=== PATIENT | female | born 2000 | race Caucasian/White ===

== ENCOUNTER 2023-07-31 09:23 | Emergency (ER) | payer BC ==
[2023-07-31] MEDS ORDERED: Sodium Chloride 0.9% 10 ML Syringe FLUSH PRN (09:59)
[2023-07-31] MEDS ORDERED: Adenosine 6 MG/2 ML SDV IVPUSH ONE (10:06)
[2023-07-31] MEDS ORDERED: Digoxin 500 MCG/2 ML Amp IVPUSH ONE ×2 (10:07→13:05)
[2023-07-31 10:09] LABS: BASOPHILS PERCENT AUTO 0.1 % (0.0-1.0); HEMATOCRIT 38.3 % (37.0-47.0); IMMATURE GRAN ABSOLUTE AUTO 0.04 K/mm3 (0.00-0.05); IMMATURE GRAN PERCENT AUTO 0.4 % (0.0-0.4); LYMPHOCYTES PERCENT AUTO 18.6 % (24.0-44.0); MEAN PLATELET VOLUME 9.1 fl (9.4-12.3); MONOCYTES ABSOLUTE AUTO 0.6 K/mm3 (0.0-0.8); MONOCYTES PERCENT AUTO 5.9 % (0.0-8.0); PLATELET COUNT,PLT 315 K/mm3 (150-400); RED BLOOD CELL COUNT 4.47 M/mm3 (4.10-5.30); WHITE BLOOD CELL COUNT,WBC 10.71 K/mm3 (3.9-11.3)
[2023-07-31 10:15] LABS: HEMOGLOBIN 13.4 gm/dl (12.0-16.0); MEAN CORPUSCULAR VOLUME 85.7 fl (83.0-99.0)
[2023-07-31 10:27] LABS: APPEARANCE,URINE CLEAR (Clear); BILIRUBIN,URINE NEGATIVE (Negative); COLOR,URINE YELLOW (Yellow); GLUCOSE,URINE NEGATIVE (Negative); KETONES,URINE NEGATIVE (Negative); LEUKOCYTE ESTERASE,URINE TRACE (Negative); NITRITE,URINE NEGATIVE (Negative); OCCULT BLOOD,URINE NEGATIVE (Negative); PH,URINE 6.5 (5.0-8.0); PROTEIN,URINE NEGATIVE (Negative); UROBILINOGEN,URINE 0.2 (0.2-1.0)
[2023-07-31 10:35] LABS: A/G RATIO 0.9 (1-2); ALANINE AMINOTRANSFERASE,ALT 33 U/L (14-59); ALBUMIN 4.1 g/dl (3.4-5.0); ALKALINE PHOSPHATASE 57 U/L (46-116); ANION GAP 17.3 (5-15); ASPARTATE AMNIOTRANSFERASE,AST 25 U/L (15-37); BILIRUBIN TOTAL 0.3 mg/dL (0.2-1.0); BLOOD UREA NITROGEN,BUN 8 mg/dL (7-18); BUN/CREATININE RATIO 11.4 (14-18); CALCIUM 9.8 mg/dL (8.5-10.1); CARBON DIOXIDE,CO2 21 mEq/L (21-32); CHLORIDE,CL 100 mEq/L (98-107); CREATININE 0.7 mg/dL (0.55-1.02); EST CRCL DRUG DOSING (CG) 113.88 mL/min; ESTIMATED GFR 126 mL/min (>60); GLUCOSE RANDOM 109 mg/dL (70-99); MAGNESIUM 1.8 mg/dL (1.8-2.4); POTASSIUM,K 3.3 mEq/L (3.5-5.1); PROTEIN TOTAL,TP 8.5 g/dl (6.4-8.2); SODIUM,NA 135 mEq/L (136-145); T4 FREE 1.09 ng/dL (0.76-1.46); TSH 3.841 uIU/mL (0.358-3.74)
[2023-07-31 10:40] LABS: BARBITURATE SCREEN,URINE NEGATIVE (CUTOFF=200); BENZODIAZEPINES SCREEN,URINE NEGATIVE (CUTOFF=150); BUPRENORPHINE SCREEN,URINE NEGATIVE (CUTOFF=10); METHADONE SCREEN, URINE NEGATIVE (CUTOFF=200); METHAMPHETAMINES SCREEN, URINE NEGATIVE (CUTOFF=500); OXYCODONE SCREEN,URINE NEGATIVE (CUT0FF=100); RBC,URINE 0-5 /hpf (0-5); THC SCREEN,URINE 20 NG/ML NEGATIVE (CUTOFF=50); WBC,URINE 0-5 /hpf (0-5)
[2023-07-31 10:41] LABS: AMPHETAMINES SCREEN, URINE PRESUMPTIVE POSITIVE (CUTOFF=500); BACTERIA,URINE FEW /hpf (FEW); EPITHELIAL CELLS,URINE 0-5 /hpf (0-5); MUCUS,URINE FEW /hpf (FEW)
[2023-07-31 10:41] LABS: TROPONIN I HIGH SENSITIVITY < 4 pg/mL (<=51)
[2023-07-31] MEDS ORDERED: Verapamil 5 MG/2 ML SDV IVPUSH ONE (11:09)
[2023-07-31] MEDS ORDERED: Sotalol 80 MG Tab PO SCH (16:45)
== END 2023-07-31 18:32 | disposition home or self-care (01) ==
LOC: JD.ED 09:23
DX: O99.411 Diseases of the circulatory system complicating pregnancy, first trimester (principal); I47.10 Supraventricular tachycardia, unspecified; Z3A.01 Less than 8 weeks gestation of pregnancy; Z79.899 Other long term (current) drug therapy; Z86.16 Personal history of COVID-19
CPT/HCPCS: 36415; 80053; 80306; 81001; 83735; 84439; 84443; 84484; 84702; 85025; 93005; 96374; 96375; 96376; 99285; J0153; J1160; J3490; 93010; 99284

== ENCOUNTER 2023-08-22 03:28 | Day surgery (SDC) | payer BC ==
[2023-08-22] MEDS ORDERED: Sodium Chloride 0.9% 10 ML Syringe FLUSH PRN (04:26)
[2023-08-22 04:30] LABS: HEMATOCRIT 35.2 % (37.0-47.0); HEMOGLOBIN 11.9 gm/dl (12.0-16.0); IMMATURE GRAN ABSOLUTE AUTO 0.02 K/mm3 (0.00-0.05); IMMATURE GRAN PERCENT AUTO 0.3 % (0.0-0.4); LYMPHOCYTES PERCENT AUTO 15.8 % (24.0-44.0); MEAN CORPUSCULAR HEMOGLOBIN 30.4 pg (28.0-32.0); MEAN CORPUSCULAR HGB CONC 33.8 g/dl (32.0-36.0); MEAN PLATELET VOLUME 9.3 fl (9.4-12.3); MONOCYTES ABSOLUTE AUTO 0.6 K/mm3 (0.0-0.8); NEUTROPHILS ABSOLUTE AUTO 4.5 K/mm3 (1.8-7.7); NEUTROPHILS PERCENT AUTO 73.9 % (41.0-71.0); PLATELET COUNT,PLT 219 K/mm3 (150-400); RED BLOOD CELL COUNT 3.91 M/mm3 (4.10-5.30); WHITE BLOOD CELL COUNT,WBC 6.03 K/mm3 (3.9-11.3)
[2023-08-22] MEDS ORDERED: Ondansetron 4 MG/2 ML SDV IVPUSH ONE (05:45)
[2023-08-22] MEDS ORDERED: Lactated Ringers 1,000 ML IV SCH (06:00)
[2023-08-22] MEDS ORDERED: Lidocaine 1% 5 ML VIAL ONE (10:05)
[2023-08-22] MEDS ORDERED: fentaNYL 100 MCG/2 ML SDV ONE (10:05)
[2023-08-22] MEDS ORDERED: Propofol 200 MG/20 ML SDV ONE (10:05)
[2023-08-22] MEDS ORDERED: Midazolam 1 MG/ML 2 ML SDV ONE (10:05)
[2023-08-22] MEDS ORDERED: Ondansetron 4 MG/2 ML SDV ONE (10:06)
[2023-08-22] MEDS ORDERED: Ketamine 200 MG/20 ML MDV ONE (10:08)
[2023-08-22] MEDS ORDERED: Doxycycline Monohydrate 100 MG Cap PO ONE ×2 (10:19→12:45)
[2023-08-22] MEDS ORDERED: Ketorolac 30 MG/ML SDV ONE (10:46)
== END 2023-08-22 12:55 | disposition home or self-care (01) ==
LOC: JD.ED 03:28 → JD.SDS 08:26
PROVIDERS: ATTEND Obstetrics & Gynecology
DX: O03.1 Delayed or excessive hemorrhage following incomplete spontaneous abortion (principal)
CPT/HCPCS: 36415; 59812; 76817; 85025; 93005; 96374; 99285; A9270; J1885; J2250; J2405; J2704; J3010; J3490; J7120

== ENCOUNTER 2024-07-04 04:48 | Emergency (ER) | payer BC ==
[2024-07-04] MEDS: Morphine 4 MG/ML Syringe IVPUSH ONE (05:20)
[2024-07-04] MEDS: Ondansetron 4 MG/2 ML SDV IVPUSH ONE (05:20)
[2024-07-04] MEDS: Sodium Chloride 0.9% 10 ML Syringe FLUSH PRN (05:21)
[2024-07-04] MEDS ORDERED: Naloxone 0.4 MG/ML SDV IVPUSH PRN (05:32)
[2024-07-04] MEDS: HYDROmorphone 0.5 MG/0.5 ML Syringe IVPUSH ONE (05:39)
[2024-07-04 05:43] LABS: BASOPHILS PERCENT AUTO 0.3 % (0.0-1.0); EOSINOPHILS PERCENT AUTO 0.1 % (0.0-6.0); HEMATOCRIT 38.5 % (37.0-47.0); HEMOGLOBIN 12.9 gm/dl (12.0-16.0); IMMATURE GRAN ABSOLUTE AUTO 0.04 K/mm3 (0.00-0.05); IMMATURE GRAN PERCENT AUTO 0.4 % (0.0-0.4); LYMPHOCYTES ABSOLUTE AUTO 1.1 K/mm3 (1.0-4.8); LYMPHOCYTES PERCENT AUTO 10.2 % (24.0-44.0); MEAN CORPUSCULAR HEMOGLOBIN 29.9 pg (28.0-32.0); MEAN CORPUSCULAR HGB CONC 33.5 g/dl (32.0-36.0); MEAN CORPUSCULAR VOLUME 89.3 fl (83.0-99.0); MEAN PLATELET VOLUME 9.5 fl (9.4-12.3); MONOCYTES ABSOLUTE AUTO 0.4 K/mm3 (0.0-0.8); NEUTROPHILS ABSOLUTE AUTO 9.2 K/mm3 (1.8-7.7); PLATELET COUNT,PLT 282 K/mm3 (150-400); RED BLOOD CELL COUNT 4.31 M/mm3 (4.10-5.30); WHITE BLOOD CELL COUNT,WBC 10.76 K/mm3 (3.9-11.3)
[2024-07-04 06:03] LABS: A/G RATIO 0.8 (1-2); ALBUMIN 3.5 g/dl (3.4-5.0); ANION GAP 6.4 (5-15); BILIRUBIN TOTAL 0.6 mg/dL (0.2-1.0); BUN/CREATININE RATIO 12.2 (14-18); CALCIUM 9.2 mg/dL (8.5-10.1); CREATININE 0.9 mg/dL (0.55-1.02); EST CRCL DRUG DOSING (CG) 82.2 mL/min; MAGNESIUM 1.9 mg/dL (1.8-2.4); POTASSIUM,K 3.4 mEq/L (3.5-5.1); PROTEIN TOTAL,TP 7.7 g/dl (6.4-8.2)
[2024-07-04] MEDS: Prochlorperazine 10 MG/2 ML SDV IVPUSH ONE (06:22)
== END 2024-07-04 07:45 | disposition home or self-care (01) ==
LOC: JD.ED 04:48
DX: R11.2 Nausea with vomiting, unspecified (principal); Z86.16 Personal history of COVID-19; Z90.89 Acquired absence of other organs; Z79.899 Other long term (current) drug therapy
CPT/HCPCS: 36415; 80053; 83735; 84703; 85025; 96374; 96375; 99284; J0780; J1171; J2270; J2405; J3490